=== PATIENT | male | born 2000 | race Two or more races ===

== ENCOUNTER 2025-03-02 15:46 | Emergency (ER) | payer OTHER ==
[~2025-03-02] VITALS: Ht 170.2 cm; Wt 85.5 kg
[~2025-03-02 15:46] MED LIST: AUG875T PO; CEPH-510 PO; KETO2CRE4 TOP; OFL50TS OT
--- NOTE | 2025-03-02 16:21 | ED.PDOC ---
SOB-HPI HPI Comments 24 Year-Old Male presents to the ED with the c/c of SOB. Pt states that his SOB started 2x days ago, and started coughing up pink and brownish phlegm this morning. Pt notes of taking Tylenol at 9am this morning. PMHx: Monica Martinez Denies Vitals: RR: 18 Pulse:96 HPI: Poor Historian. REVIEW OF SYSTEMS: CONSTITUTIONAL: Denies acute: fever, diaphoresis, chills, generalized weakness. HEAD: Denies acute: headache, photophobia Eyes: Denies acute: Double vision, vision loss, eye pain, eye discharge. EARS: Denies acute: tinnitus, hearing loss, ear discharge, ear pain, THROAT: Denies acute: sore throat, swelling, difficulty swallowing , pain with swallowing, change in voice. NECK: Denies acute: neck pain, neck swelling, stiff neck. HEART: Denies acute : chest pain, palpitations, LUNGS: Denies acute: wheezing, hemoptysis ABDOMEN: Denies acute: abdominal pain, Nausea, Vomiting, diarrhea, melena , hematemesis, hematochezia SKIN: Denies acute: rash, redness, lesions, itchiness. EXTREMITIES: Denies acute: calf pain, numbness, tingling, weakness, denies pain in extremity. Denies acute: Low back pain. Neuro: Denies acute: focal neurological deficit, motor or sensory focal neurological d eficit, tremors, seizure like activity, confusion, dizziness, change in mental status, loss of bowel or bladder function, cauda equina like symptoms. : Denies acute: dysuria, hematuria, flank pain, increase in urinary frequency. PSYCH: Denies acute: hallucination, suicidal ideation, homicidal ideation. PHYSICAL EXAM: General: ----no----acute distress, awake and alert. Head: normocephalic, atraumatic. Neck: supple, trachea is midline, no swelling. Throat: Normal phonation. Eyes:, no erythema, no purulent discharge, no proptosis, no icterus. Heart: regular tachycardic, no significant murmur appreciated. Lungs: no apparent respiratory distress, Able to speak in full sentences. No wheezing, no rhonchi, no crackles. No stridors Clear to auscultation bilaterally. Abdomen: non tender to palpation, non distended, soft, no guarding, no rebound, + bowel sounds. Neuro: Awake, Alert, oriented to name, self, situation, follows commands GCS=15. Speech is normal. Skin: no petechia, no purpura, no cyanosis, non-pale, not jaundice. Lower extremities: --no - Pitting edema no deformity, no focal swelling, no calf TTP. Makes eye contact. moves all four extremities. Face: no apparent facial droop. Ambulating in the ED independently. ED COURSE: Chief Complaint: Shortness of Breath Time Seen by MD: 16:00 Primary Care Provider: Unknown Reviewed notes: Nurses Notes, Medications, Allergies Information Source: Patient Past Medical History PAST MEDICAL HISTORY: Denies Surgical History: Denies all surgeries Family History Family History: Reviewed,noncontributory to illness Social History Smoker: Non-Smoker Alcohol: Denies ETOH Use Drugs: Denies Drug Use Lives In: Home Was a procedure done? Was a procedure done?: No Differential Dx Differential Diagnosis: Bronchitis, Allergic Rhinitis, Other (DDx include ACS, unstable angina, anxiety, PE, pneumothroax, neoplasm, cardiac ischemia, COPD, asthma, CHF, pleural effusion, tobacco abuse, pneumonia, hypoxia, hypercapnia, anemia., infection/sepsis., pulmonary edema. Asthma, Cardiac tamponade, infection.) X-Ray, Labs, Meds, VS Vital Signs Date Time Temp Pulse Resp B/P (MAP) Pulse Ox O2 Delivery O2 Flow Rate FiO2 03/02/25 22:14 86 18 98 Room Air 03/02/25 22:14 97.4 86 18 118/67 (84) 98 97.4 03/02/25 21:50 20 98 Room Air* 0 21 03/02/25 20:40 97.6 99 16 122/91 (101) 98 97.6 03/02/25 16:23 98.7 112 18 144/91 (108) 96 98.7 03/02/25 16:22 18 96 Room Air* 0 21 Lab Test 03/02/25 16:48 03/02/25 16:00 Range/Units White Blood Count 8.0 4.4-10.8 10^3/uL Red Blood Count 6.39 H 4.5-5.90 10^6/uL Hemoglobin 15.2 13.5-17.5 g/dL Hematocrit 46.4 41.0-53.0 % Mean Corpuscular Volume 72.6 L 80.0-100.0 fL Mean Corpuscular Hemoglobin 23.8 L 28.0-32.0 pg Mean Corpuscular Hemoglobin Concent 32.7 32.0-36.0 g/dL Red Cell Distribution Width 15.5 H 11.8-14.3 % Platelet Count 302 140-450 10^3/uL Mean Platelet Volume 8.6 6.9-10.8 fL Neutrophils (%) (Auto) 60.5 37.0-80.0 % Lymphocytes (%) (Auto) 26.8 10.0-50.0 % Monocytes (%) (Auto) 9.0 0.0-12.0 % Eosinophils (%) (Auto) 2.8 0.0-7.0 % Basophils (%) (Auto) 0.9 0.0-2.0 % Neutrophils # (Auto) 4.8 1.6-8.6 10 ^3/uL Lymphocytes # (Auto) 2.1 0.4-5.4 10 ^3/uL Monocytes # (Auto) 0.7 0-1.3 10 ^3/uL Eosinophils # (Auto) 0.2 0-0.8 10 ^3/uL Basophils # (Auto) 0.1 0-0.2 10 ^3/uL Nucleated Red Blood Cells 0.0 % D-Dimer, Quantitative 0.20 0.0-0.49 mg/L FEU Sodium Level 142 136-145 mmol/L Potassium Level 4.2 3.5-5.1 mmol/L Chloride Level 102 98-107 mmol/L Carbon Dioxide Level 29 20-31 mmol/L Anion Gap 11 5-15 Blood Urea Nitrogen 16 9-23 mg/dL Creatinine 1.07 0.700-1.30 mg/dL Glomerular Filtration Rate Calc 101 >90 mL/min BUN/Creatinine Ratio 15.0 10.0-20.0 Serum Glucose 101 74-106 mg/dL Lactic Acid Level 1.3 0.4-2.0 mmol/L Calcium Level 11.4 H 8.7-10.4 mg/dL Magnesium Level 2.1 1.6-2.6 mg/dL Total Bilirubin 0.4 0.2-1.0 mg/dL Aspartate Amino Transferase (AST) 17 13-40 U/L Alanine Aminotransferase (ALT) 31 7-40 U/L Alkaline Phosphatase 84 46-116 U/L B-Type Natriuretic Peptide 3.34 0-100 pg/mL Total Protein 8.8 H 5.7-8.2 g/dL Albumin 5.4 H 3.2-4.8 g/dL Monoscreen Negative Influenza Type A Antigen Negative Negative Influenza Type B Antigen Negative Negative SARS-CoV-2 Antigen (Rapid) Negative NEGATIVE Microbiology Date/Time Source Procedure Growth Status 03/02/25 16:58 Blood Blood Culture - Preliminary NO GROWTH AFTER 24 HOURS OF INCUBATION. Resulted 03/02/25 16:48 Blood Blood Culture - Preliminary NO GROWTH AFTER 24 HOURS OF INCUBATION. Resulted [place] [address] Ph: [phone] DIAGNOSTIC IMAGING Diagnostic Imaging Report : [id number] Signed PATIENT: KATIUSKA KRAMER ACCT: [id number] UNIT: [id number] : 2000 LOC: ER ROOM / BED: / AGE / SEX: 24 / M ADM STATUS: REG ER SERVICE 1625 ORDERING PHYSICIAN: ORAL VAZQUEZ DO PROCEDURE(s): CXRP - CHEST PORTABLE REASON: sob ORDER NUMBER(s): [id number], ACCESSION NUMBER(s): [id number] INDICATION: sob TECHNIQUE: Frontal view of the chest. COMPARISON: None FINDINGS: Findings. The heart and mediastinal contours are grossly unremarkable. There is no evidence of pleural disease. The lungs are clear. The bony structures of the chest are intact without fracture. IMPRESSION: 1. No evidence of acute disease. ATED BY: AMANDA MENDEZ MD DICTATED DATE/TIME: 03/02/251649 SIGNED BY: AMANDA MENDEZ MD SIGNED DATE/TIME: 03/02/251649 CC: Time of 1ST Reevaluation: 16:47 Reevaluation 1ST: Unchanged Time of 2ND Reevaluation: 00:00 Reevaluation 2ND: Improved Patient Education/Counseling: Diagnosis, Treatment Family Education/Counseling: No Family Present Comments Patient presented with the above HPI.---respiratory symptoms/dyspnea---workup was initiated. patient was found with the above mentioned diagnosis. the following medications were ordered: please refer to order lists of meds and tests obtained by myself Dr. Vazquez. Patient ED course and VS have been stabilized. Patient has been reassessed in the ED and remained in a stable condition. Pertinent incidental findings were discussed with the patient and/or family. Patient/family voices understanding and is agreeable with plan. Patient has been observed in the ED adequate length of time to insure improvement/stability. Escalation of care considered: Consideration of escalation to observation or admission Workup has been unremarkable. Patient was DISCHARGED home in a stable condition. All the reports of any imaging studies that were ordered by myself were reviewed by myself. Departure 1 Departure Time of Disposition: 21:27 Impression: Primary Impression: Cough Additional Impression: Shortness of breath Disposition: 01 HOME / SELF CARE / HOMELESS Condition: Stable Additional Instructions: Additional instructions: You MUST follow-up with your primary care/family doctor in 1 to 2 days. If you are unable to see your primary care/family doctor, please return to our emergency room for re-assessment and re-evaluation in 1 to 2 days. Return to the emergency room here in our facility or to the nearest ER [facility] if your symptoms change or worsen. CONSULTATIONS: you MUST Follow-up for consultation as soon as possible with: -pulmonology in 1-2 days. Please call for appointment. You MUST call the consultants office yourself to make an appointment. You may need to arrange that through your insurance and/or your primary/family doctor. If you are unable to see the small business consultant in 1 to 2 days, you must return to our emergency room (or any other ER of your choice) for re-assessment and re- evaluation. Adequate fluid hydration. e-Prescriptions Azithromycin (Zithromax Tri-Kyle) 500 Mg Tab 500 MG PO DAILY for 6 Days, #6 TAB Prov: ORAL VAZQUEZ DO 03/02/25 Discharged With: Self Critical Care Note Critical Care Time?: No I personally scribed for ORAL VAZQUEZ DO ([email or web address]) on 03/02/25 at 16:21. Electronically submitted by Yahir Velazco ([email or web address]). I personally scribed for ORAL VAZQUEZ DO ([email or web address]) on 03/02/25 at 16:29. Electronically submitted by Yahir Velazco ([email or web address]). I personally scribed for ORAL VAZQUEZ DO ([email or web address]) on 03/02/25 at 18:59. Electronically submitted by Darrick Goncalves ([email or web address]). ORAL VAZQUEZ DO March 02, 2025 16:21
--- NOTE | 2025-03-02 16:53 | DVH ---
INDICATION: sob TECHNIQUE: Frontal view of the chest. COMPARISON: None FINDINGS: Findings. The heart and mediastinal contours are grossly unremarkable. There is no evidence of pleur al disease. The lungs are clear. The bony structures of the chest are intact without fracture. IMPRESSION: 1. No evidence of acute disease.
[2025-03-02 17:29] LABS: Basophils # (auto) 0.1 10 ^3/uL (0-0.2); Basophils % (auto) 0.9 % (0.0-2.0); Eosinophils # (auto) 0.2 10 ^3/uL (0-0.8); Eosinophils % (auto) 2.8 % (0.0-7.0); Hematocrit 46.4 % (41.0-53.0); Hemoglobin 15.2 g/dL (13.5-17.5); Lymphocytes # (auto) 2.1 10 ^3/uL (0.4-5.4); Lymphocytes % (auto) 26.8 % (10.0-50.0); Mean Corpuscular Hemoglobin 23.8 pg (28.0-32.0); Mean Corpuscular Hgb Conc. 32.7 g/dL (32.0-36.0); Mean Corpuscular Volume 72.6 fL (80.0-100.0); Monocytes # (auto) 0.7 10 ^3/uL (0-1.3); Neutrophils # (auto) 4.8 10 ^3/uL (1.6-8.6); Neutrophils % (auto) 60.5 % (37.0-80.0); Platelet Count (auto) 302 10^3/uL (140-450); Red Blood Cells 6.39 10^6/uL (4.5-5.90); Red Cell Distribution Width 15.5 % (11.8-14.3)
[2025-03-02 17:42] LABS: Alanine Aminotransferase 31 U/L (7-40); Alkaline Phosphatase 84 U/L (46-116); Anion Gap 11 (5-15); Aspartate Aminotransferase 17 U/L (13-40); Blood Urea Nitrogen 16 mg/dL (9-23); Carbon Dioxide 29 mmol/L (20-31); Chloride 102 mmol/L (98-107); Glucose 101 mg/dL (74-106); Magnesium 2.1 mg/dL (1.6-2.6); Potassium 4.2 mmol/L (3.5-5.1); Sodium 142 mmol/L (136-145)
[2025-03-02 17:43] LABS: Bilirubin, Total 0.4 mg/dL (0.2-1.0)
[2025-03-02 17:45] LABS: Albumin 5.4 g/dL (3.2-4.8); Calcium 11.4 mg/dL (8.7-10.4); Total Protein 8.8 g/dL (5.7-8.2)
[2025-03-02 18:50] LABS: COVID19 ANTIGEN SOFIA FIA NEGATIVE (NEGATIVE); Rapid Influenza A Negative (Negative); Rapid Influenza B Negative (Negative)
[2025-03-02] MEDS ORDERED: AZITTAB2 PO (21:29)
[2025-03-02] MEDS: ALBUTEROL SULF 2.5 MG/0.5ML(0.5%) NEB SOLN ONE (21:47)
[2025-03-02] MEDS: IPRATROPIUM BROM 0.5 MG/2.5ML INH SOL ONE (21:48)
[2025-03-02] MEDS: IPRATROPIUM BROM 0.5 MG/2.5ML INH SOL NEB ONE (21:52)
[2025-03-02] MEDS: ALBUTEROL SULF 2.5 MG/0.5ML(0.5%) NEB SOLN NEB ONE (21:52)
[2025-03-02] MEDS: predniSONE 20 MG TAB PO ONE (22:08)
[2025-03-02 22:14] VITALS: BP 118/67; PULSE 86; RESP 18; TEMP 97.4; O2SAT 98
== END 2025-03-02 22:17 | disposition home or self-care (01) ==
LOC: ER 15:46
DX: R05.9 Cough, unspecified (principal); R06.02 Shortness of breath; Z20.822 Contact with and (suspected) exposure to COVID-19
CPT/HCPCS: 36415; 71045; 80053; 83605; 83735; 83880; 85025; 85379; 86308; 87040; 87426; 87804; 94640; 99284; J7512

== ENCOUNTER 2025-03-04 13:31 | Emergency (ER) | payer OTHER ==
[~2025-03-04] VITALS: Ht 170.2 cm; Wt 85.3 kg
[~2025-03-04 13:31] MED LIST changes: +AZITTAB2 PO
--- NOTE | 2025-03-04 14:23 | ED.PDOC ---
Eye-HPI HPI Comments A 24 YEAR OLD MALE PRESENTS TO THE ED WITH COMPLAINT OF SORE THROAT. PATIENT STATES HE HAS BEEN EXPERIENCING A SORE THROAT THAT IS WORSE WHEN SWALLOWING FOR THE PAST 4 DAYS. PATIENT NOTES HE CAME TO THIS ED FOR THIS COMPLAINT 2 DAYS AGO WHERE A CHEST X RAY WAS DONE AND WAS PRESCRIBED AZITHROMYCIN, BUT NOTES THERE HAS BEEN NO IMPROVEMENT IN HIS SYMPTOMS. PATIENT DENIES FEVER, CHILLS, SHORTNESS OF BREATH, CHEST PAIN, ABDOMINAL PAIN, NAUSEA, VOMITING, HEADACHE, OR OTHER COMPLAINTS. NO OTHER SYMPTOMS OR MODIFYING FACTORS AT THIS TIME. PATIENT IS ALERT, ORIENTED X 4, AND HAS STEADY GAIT. Chief Complaint: Flu like Time Seen by MD: 13:39 Primary Care Provider: Unknown Reviewed Notes: Nurses Notes, Medications, Allergies Allergies: Coded Allergies: NO KNOWN ALLERGIES (Unverified , 02/07/23) Home Meds Active Scripts Promethazine-Dm (Promethazine Dm 6.25-15 mg/5Ml) 1 Nasreen Nasreen, 5 ML PO TID, #160 ML Prov:KAITLYN FIGUEROA 03/04/25 Azithromycin (Zithromax Tri-Kyle) 500 Mg Tab, 500 MG PO DAILY for 6 Days, #6 TAB Prov:ORAL VAZQUEZ DO 03/02/25 Ofloxacin (Otic) (FLOXIN OTIC) [address], 5 DROP OT BID for 10 Days, #15 ML Prov:AILYN MOLINA Q PAYROLL ASSISTANT 01/24/24 Amoxicillin & Pot Clavulanate (AUGMENTIN TABLET) 875 Mg Tb, 1 TAB PO BID for 10 Days, #20 TAB Prov:AILYN MOLINA Q PAYROLL ASSISTANT 01/24/24 Ketoconazole (Ketoconazole) 2 % Cre, 1 APPLIC TOP BID, #30 GRAMS Prov:KAITLYN FIGUEROA 02/07/23 Cephalexin ( Keflex 500) 500 Mg Cap, 1 CAP PO QID, #40 CAP Prov:KAITLYN FIGUEROA 02/07/23 Information Source: Patient Mode of Arrival: Ambulatory Timing: Days Duration: Since onset, Days Prehospital treatment: None Quality: Pain, Red Lids: Normal Conjunctiva: Normal Cornea: Normal Pupils: Normal EOM: Normal Fundus: Normal Slit lamp exam: Normal Anterior chamber: Normal Mouth Location: Pharynx Mouth: Normal ENT Ear Exam: Normal, Normal, Normal Nose: Normal Sinuses: Normal Oropharynx: Tonsillar hypertrophy, Red, Exudate Onset: Spontaneous Throat Exposed to: None History of: None Last Tetanus: Unknown Modifying factors: Nothing Associated signs and symptoms: Sore Throat Past Medical History PAST MEDICAL HISTORY: Denies Surgical History: Denies all surgeries Family History Family History: Reviewed,noncontributory to illness Social History Smoker: Non-Smoker Alcohol: Denies ETOH Use Drugs: Denies Drug Use Lives In: Home Constitutional: denies: chills, diaphoresis, fatigue, fever, malaise, sweats, weakness, others EENTM: reports: throat pain, throat swelling; denies: blurred vision, double vision, ear bleeding, ear discharge, ear drainage, ear pain, ear ringing, eye pain, eye redness, hearing loss, mouth pain, mouth swelling, nasal discharge, nose bleeding, nose congestion, nose pain, photophobia, tearing, voice changes, others Respiratory: denies: cough, hemoptysis, orthopnea, SOB at rest, shortness of breath, SOB with excertion, stridor, wheezing, others Cardiovascular: denies: chest pain, dizzy spells, diaphoresis, Dyspnea on exe rtion, edema, irregular heart beat, left arm pain, lightheadedness, palpitations, PND, syncope, others Gastrointestinal: denies: abdomen distended, abdominal pain, blood streaked bowels, constipated, diarrhea, dysphagia, difficulty swallowing, hematemesis, melena, nausea, poor appetite, poor fluid intake, rectal bleeding, rectal pain, vomiting, others Genitourinary: denies: burning, dysuria, flank pain, frequency, hematuria, incontinence, penile discharge, penile sore, pain, testicle pain, testicle swelling, urgency, others Neurological: denies: dizziness, fainting, headache, left sided numbness, left sided weakness, numbness, paresthesia, pre-existing deficit, right sided numbness, right sided weakness, seizure, speech problems, tingling, tremors, weakness, others Musculoskeletal: denies: back pain, gout, joint pain, joint swelling, muscle pain, muscle stiffness, neck pain, others Integumetry: denies: bruises, change in color, change in hair/nails, dryness, laceration, lesions, lumps, rash, wounds, others Allergic/Immunocompromised: denies: Difficulty Healing, Frequent Infections, Hives, Itching, others Hematologic/Lymphatic: denies: anemia, blood clots, easy bleeding, easy bruising, swollen glands, others Endocrine: denies: excessive hunger, excessive sweating, excessive thirst, excessive urination, flushing, intolerance to cold, intolerance to heat, unexplained weight gain, unexplained weight loss, others Psychiatric: denies: anxiety, bipolar disorder, depression, hopeless, panic disorder, schizophrenia, sleepless, suicidal, others All Other Systems: Reviewed and Negative Physical Exam General Appearance: No Apparent Distress, Normal HEENT: PERRL/EOMI, Pharyngeal Erythema (TONSILLAR SWELLING, NO EXUDATES. ), TMs Normal Neck: Full Range of Motion, Non-Tender, Normal, Normal Inspection Respiratory: Chest Non-Tender, Lungs Clear, No Accessory Muscle Use, No Respiratory Distress, Normal Breath Sounds Cardiovascular: No Edema, No JVD, No Murmur, No Gallop, Normal Peripheral Pulses, Regular Rate/Rhythm Breast Exam: Deferred Gastrointestinal: No Organomegaly, Non Tender, No Pulsatile Mass, Normal Bowel Sounds, Soft Genitalia: Deferred Pelvic: Deferred Rectal: Deferred Extremities: No calf tenderness, Normal capillary refill, Normal inspection, Normal range of motion, Non-tender, No pedal edema Musculoskeletal : Apperance: Normal Neurologic: Alert, crimping machine operator II-XII nml as Tested, No Motor Deficits, Normal Affect, Normal Mood, No Sensory Deficits Cerebellar Function: Normal Reflexes: Normal Skin: Dry, Normal Color, Warm Peripheral Pulses: 2+ carotid (R), 2+ carotid (L) Lymphatic: No Adenopathy Was a procedure done? Was a procedure done?: No EENT DIFF Eye: N/A Ear: Otitis Media, Pharyngitis, Sinusitis Nose: N/A Mouth: N/A Sore Throat: Pharyngitis, Streptococcal, Viral Pharyngitis, URI X-Ray, Labs, Meds, VS Vital Signs Date Time Temp Pulse Resp B/P (MAP) Pulse Ox O2 Delivery O2 Flow Rate FiO2 03/04/25 14:12 98.1 102 16 131/86 (101) 97 98.1 03/04/25 14:11 102 16 97 Room Air 03/04/25 14:01 98.1 102 16 131/86 (101) 97 98.1 Current Medications Medications (Trade) Dose Ordered Sig/Oscar Route Start Time Stop Time Status Last Admin Ceftriaxone Sodium (Rocephin) 1,000 mg ONCE ONCE IM 03/04/25 14:15 03/04/25 14:16 DC 03/04/25 14:34 Methylprednisolone Sodium Succinate (Solu Medrol) 125 mg ONCE ONCE IM 03/04/25 14:15 03/04/25 14:16 DC 03/04/25 14:36 X-Ray, Labs, Meds, VS Comment EXTERNAL MEDICAL RECORDS REVIEWED: [NONE] INDEPENDENT HISTORIANS: [NONE] SOCIAL DETERMINANTS OF HEALTH: [NONE] LABS ORDERED: NONE REVIEWED AND INTERPRETED RESULTS: NONE IMAGING ORDERED: NONE TREATMENTS ORDERED: ROCEPHIN 1 G IM, SOLU-MEDROL 125 MG IM PROCEDURES PERFORMED: NONE CRITICAL CARE TIME: NONE I HAVE DISCUSSED THE PATIENT WITH THE ATTENDING PHYSICIAN DR. DELCID AND HE AGREES WITH THE PATIENT'S PLAN OF CARE AND DISPOSITION. BASED ON HISTORY OF PRESENT ILLNESS, AND PHYSICAL EXAM, PATIENT WILL BE DISCHARGED HOME. SHARED DECISION MAKING: PATIENT INSTRUCTED TO FOLLOW UP WITH PRIMARY CARE PROVIDER IN 1-2 DAYS FOR RE-EVALUATION OF SYMPTOMS. PATIENT VERBALIZES UNDERSTANDING TO RETURN TO ED FOR NEW OR WORSENING SYMPTOMS OR IF FOLLOW UP WITH PCP CANNOT BE OBTAINED. PATIENT FEELS COMFORTABLE GOING HOME AT THIS TIME. ALL QUESTIONS ADDRESSED AT TIME OF DISCHARGE. Time of 1ST Reevaluation: 14:51 Reevaluation 1ST: Improved Patient Education/Counseling: Diagnosis, Treatment, Need For Follow Up Family Education/Counseling: Diagnosis, Treatment, Need For Follow Up Medical Screening: No EMC Exist At This Time Departure 1 Departure Time of Disposition: 14:51 Impression: Primary Impression: Acute tonsillitis Qualified Codes: J03.90 - Acute tonsillitis, unspecified Disposition: 01 HOME / SELF CARE / HOMELESS Condition: Stable Additional Instructions: FOLLOW-UP WITH PCP IN 1 TO 2 DAYS. TAKE MEDICATIONS PRESCRIBED. RETURN TO ED FOR ANY NEW OR WORSENING SYMPTOMS. e-Prescriptions Promethazine-Dm (Promethazine Dm 6.25-15 mg/5Ml) 1 Nasreen Nasreen 5 ML PO TID, #160 ML Prov: KAITLYN FIGUEROA 03/04/25 Discharged With: Self Critical Care Note Critical Care Time?: No Stability Stability form required: No I personally scribed for KAITLYN FIGUEROA ([email or web address]) on 03/04/25 at 14:23. Electronically submitted by Dale Sims ([email or web address]). KAITLYN FIGUEROA March 04, 2025 14:23
[2025-03-04] MEDS: cefTRIAXone SOD 1,000 MG VL IM ONE (14:34)
[2025-03-04] MEDS: LIDOCAINE 1% HCL (LOCAL ANESTH.) INJ 20ML MDV ONE (14:36)
[2025-03-04] MEDS: methylPREDNISolone SOD SUCC 125 MG/2 ML VL IM ONE (14:36)
[2025-03-04] MEDS ORDERED: PROM1SOL4 PO (14:43)
[2025-03-04 14:58] VITALS: BP 114/78; PULSE 86; RESP 16; TEMP 98.5; O2SAT 98
== END 2025-03-04 15:03 | disposition home or self-care (01) ==
LOC: ER 13:31
DX: J03.90 Acute tonsillitis, unspecified (principal)
CPT/HCPCS: 96372; 99284; J0696; J2003; J2919